=== PATIENT | female | born 1985 | race Caucasian/White ===

== ENCOUNTER 2016-10-22 04:00 | Inpatient (IN) | payer OTHER ==
--- NOTE | ~2016-10-22 | PN ---
Unit #: [id number] #: [id number] Patient: KATERYNA TO [id number] [facility] [address] [place] [address] [id number] MR#: [id number] NAME: KATERYNA TO ROOM: P211 Age: 31 Sex: F Admission Date: 10/22/2016 : 1985 Attending Physician: Sean Amaya M.D. Admitting Physician: Sean Amaya M.D. Primary Care Physician: Primary Care Physician No [facility] PROGRESS NOTES DATE 10/24/2016 DISCUSSION Ms. Kateryna To is a 31-year-old female currently here for detox and depression. Reports making progress but still feeling sad, depressed. Patient reported that she did not do well with Celexa and trazodone and was okay to try Lexapro and Seroquel. Patient sad, depressed, withdrawn, isolative. Still reporting having symptoms of withdrawal. Sleeping good. Tolerating medication fairly well. Complete review of system unremarkable. MENTAL STATUS EXAMINATION General appearance, patient dressed casually in hospital attire. Attention span, concentration fair. Oriented in time, place and person. Mood and affect sad, depressed. Speech monotone. Thought process concrete. Patient denied any thoughts of harming self or others or any psychotic symptoms, was seclusive, isolative. Recent and remote memory poor. Insight and judgement poor. DIAGNOSES 1. Mood disorder NOS. 2. Opiate use disorder, severe. ASSESSMENT/PLAN Advised to discontinue Celexa and trazodone and start patient on Lexapro 10 mg at bedtime and Seroquel 100 mg at bedtime. Continue with the detox protocol. If needed consider further adjustment of medication. Dictated by... Lainey Sanderson/jd TD: 10/24/2016 21:14 JOB #: [id number] Unit #: [id number] #: [id number] Patient: KATERYNA TO [facility] PROGRESS NOTES Page 1 of 1 X Sean Amaya MD X PROGRESS NOTE
--- NOTE | ~2016-10-22 | DS ---
Unit #: [id number] #: [id number] Patient: CARMEN TO [id number] [facility] [address] [place] [address] [id number] MR#: [id number] NAME: CARMEN TO. ROOM: P211 Age: 31 Sex: F Admission Date: 10/22/2016 : 1985 Discharge Date: 10/25/2016 Attending Physician: Sean Amaya M.D. Primary Care Physician: Primary Care Physician No DISCHARGE SUMMARY REASON FOR ADMISSION Opioid detox. DIAGNOSTIC STUDIES LABORATORY RESULTS: Urine drug screen positive for amphetamine. HOSPITAL COURSE The patient was admitted to inpatient unit on 10/22/2016 and discharged on 10/25/2016. The patient was treated with group therapy, individual therapy, medication management, detox protocol, and detox monitoring. The patient was responsive to treatment. Subsequently, the patient was discharged with a plan to follow up in outpatient program. DISCHARGE MEDICATIONS None. DISCHARGE DIAGNOSES Psychiatric: Opioid use disorder, severe, F11.20; major depressive disorder, recurrent, severe, F33.2. Secondary diagnosis: Deferred. Medical diagnosis: None. Stressors: Psychosocial stressors. DISCHARGE INSTRUCTIONS The patient to follow up in outpatient clinic as per secondary social studies teacher. CONDITION ON DISCHARGE The patient was pleasant and cooperative. Denied any psychotic symptom or any suicidal ideation. PROGNOSIS Guarded. DIET AND ACTIVITY As tolerated. Dictated by... Sean Amaya M.D. Unit #: [id number] #: [id number] Patient: CARMEN TO SZC/modl TD: 11/10/2016 11:52 JOB #: [id number] DISCHARGE SUMMARY Page 1 of 1 X Sean Amaya MD X DISCHARGE SUMMARY
--- NOTE | ~2016-10-22 | HP ---
Unit #: [id number] #: [id number] Patient: KATERYNA TO [id number] [place] [address] [id number] I MR#: [id number] NAME: KATERYNA TO. ROOM: P211 Age: 31 Sex: F Admission Date: 10/22/2016 : 1985 Attending Physician: Sean Amaya M.D. Admitting Physician: Sean Amaya M.D. Primary Care Physician: Primary Care Physician No HISTORY AND PHYSICAL HISTORY OF PRESENT ILLNESS Kateryna is a 31 year old admitted to [address] [place] [address] because of her drug use. She shoots heroin. PAST MEDICAL HISTORY Long history of opioid abuse to include IV heroin. PAST SURGICAL HISTORY None reported. ALLERGIES Penicillin (anaphylaxis). SOCIAL HISTORY Smokes less than 1 pack per day. Drinks half pint of liquor on a daily basis. Admits to a long history of opioid abuse to include IV heroin. FAMILY HISTORY Medically noncontributory. REVIEW OF SYSTEMS CONSTITUTIONAL: No fever or chills. HEENT: Denies any sore throat, ear pain or runny nose. CARDIOVASCULAR: Denies chest pain, irregular heart rhythm or palpitations. CHEST: Denies shortness of breath or cough. No hemoptysis. GASTROINTESTINAL: Denies nausea, vomiting, diarrhea or chronic constipation. ENDOCRINE: Denies history of increased thirst or urination. No recent significant weight loss or gain. GENITOURINARY: Denies dysuria, frequency, or hematuria. SKIN: Denies any rashes. HEMATOLOGIC: Denies history of increased bleeding or bruising. MUSCULOSKELETAL: Denies any hot, swollen joints. No generalized muscle pain. NEUROLOGIC: Denies problems with vision or speech. No frequent, severe headaches. No numbness, tingling or weakness in any extremities. Denies loss of bladder or bowel control. CURRENT MEDICATIONS Detox protocol. PHYSICAL EXAMINATION GENERAL: Alert, thin, in no apparent distress. Unit #: [id number] #: [id number] Patient: KATERYNA TO VITAL SIGNS: Blood pressure 126/82, heart rate 92, respirations 16, temperature 98.6. WEIGHT: 125. HEIGHT: 5 feet 7 inches. SKIN: Warm and dry without rash or lesion. HEENT: Normocephalic. TMs not viewed. Oral and nasal passages clear. Conjunctivae clear. PERRLA. EOMs intact. NECK: Supple without lymphadenopathy or thyromegaly. HEART: Regular rate and rhythm without murmur. LUNGS: Clear. ABDOMEN: Soft, nontender. : Not done. EXTREMITIES: No evidence of cyanosis, clubbing or edema. Moves all without focal deficit. NEUROLOGICAL: Grossly within normal limits. Cranial Nerves: II: Visual ruvalcaba are intact. III, IV AND : Extraocular movements are intact. Pupils are equal, round and reactive to light. V: Facial sensation is grossly normal. VII: Facial movements and expression are normal. VIII: Auditory acuity grossly intact. IX, X: Uvula is midline. Phonation is normal. XI: Patient shrugs shoulders and turns head normally. XII: Tongue protrudes in the midline. Sensory and Motor Function: Sensory and motor sensation is grossly normal. Motor: moves all extremities well. Coordination: Gait is normal. Deep Tendon Reflexes: Intact. IMPRESSION Psychiatric admission. RECOMMENDATIONS PSYCHIATRIC: Per psychiatrist. MEDICAL: See no contraindication to participate in facility's activities. MEDICAL PROGNOSIS Good. MEDICAL CONDITION Stable. Dictated by... Irma Gamez P.A.-C. for Lainey [place]/jd TD: 10/22/2016 19:41 JOB #: [id number] Unit #: [id number] #: [id number] Patient: KATERYNA TO HISTORY AND PHYSICAL Page 1 of 1 X Irma Gamez HISTORY AND PHYSICAL
--- NOTE | ~2016-10-22 | PA ---
Unit #: [id number] #: [id number] Patient: KATERYNA TO [id number] [facility] [address] [place] [address] [id number] I MR#: [id number] NAME: KATERYNA TO ROOM: P211 Age: 31 Sex: F Admission Date: 10/22/2016 : 1985 Date of Assessment: 10/23/2016 Attending Physician: Sean Amaya M.D. Admitting Physician: Sean Amaya M.D. Primary Care Physician: Primary Care Physician No PSYCHIATRIC ASSESSMENT INFORMANTS The patient reliability, fair informant and chart reliability, good. CHIEF COMPLAINT Opioid detox. HISTORY OF PRESENT ILLNESS Ms. Kateryna To is a 31-year-old female, presented with the above-mentioned complaint. The patient has a history of previous outpatient services. Currently, reporting using 1 to 1-1/2 g of heroin IV. The patient reported last use of 1 g of heroin. Feeling sick. The patient reports having extensive chemical dependency history. The patient reports that she is tired and needing some help to get her children back. The patient reported that she has been previously diagnosed with PTSD, depression, social anxiety, and panic disorder. The patient reports that she has not been taking her medication for the last 4 years. The patient scored 20 on COWS Scale. Denied any suicidal or homicidal ideation, but sad and depressed. The patient reported use of tobacco, age of onset 11; alcohol, age of onset 12; marijuana, age of onset 13; crack cocaine, age of onset 14; LSD, age of onset 12; opioid, age of onset 15; amphetamine, age of onset 28; and benzodiazepine, age of onset 15. The patient reported history of blackout, history of withdrawal symptom, and IV drug abuse. No history of HIV or hepatitis. The patient reported current symptoms of abdominal cramping, muscle cramping, diaphoresis, depressed mood, headache, irritability, poor appetite, restlessness, rhinorrhea, and sleep problem. Needing inpatient admission at this time. PAST PSYCHIATRIC HISTORY Remarkable for history of outpatient treatment as mentioned above. No history of any suicide attempt or any inpatient treatment. FAMILY HISTORY AND SOCIAL HISTORY The patient has a poor support system. No known history of any abuse. No legal charges. MEDICAL HISTORY Unremarkable for any chronic medical illness. Musculoskeletal; muscle strength and tone, no atrophy or abnormal movement. Gait normal. MEDICATION HISTORY None. ALLERGIES Unit #: [id number] #: [id number] Patient: KATERYNA TO No known drug allergies. SUBSTANCE ABUSE HISTORY Please see above. REVIEW OF SYSTEMS HEENT: Eyes, clear. Ears, nose, mouth, and throat; clear. CARDIOVASCULAR: Unremarkable. RESPIRATORY: Unremarkable. GI: Unremarkable. : Unremarkable. SKIN: Unremarkable. LYMPH NODE: Unremarkable. NEUROLOGIC: Unremarkable. ENDOCRINE: Unremarkable. HEMATOLOGIC: Unremarkable. ALLERGIC/IMMUNOLOGIC: Unremarkable. MUSCULOSKELETAL: Muscle strength and tone, no atrophy or abnormal movement. Gait normal. MENTAL STATUS EXAMINATION CONSTITUTIONAL: Measurement of vital signs; temperature 98.7, heart rate 92, respiratory rate 16, oxygen saturation 98%, and blood pressure 126/82. Height 5 feet 7 inches and weight 125 pounds. GENERAL APPEARANCE: The patient dressed casually. The patient did not show any facial deformity. MUSCULOSKELETAL: Please see above. PSYCHIATRIC EXAMINATION Description of speech, regular rate and normal volume. Description of thought process, goal directed. Description of association, intact. Description of abnormal psychotic thinking; the patient denied any hallucinations or delusions, but sad and depressed. Denied any suicidal or homicidal ideation. Substance abuse. Description of the patient's judgment: Concerning everyday activity, poor. Social situation, poor. Concerning psychiatric condition, poor. Complete mental examination; oriented in time, place, and person. Recent and remote memory, fair. Attention span and concentration, fair. Language, able to name object and repeat phrases. Fund of knowledge, aware of current event and passive vocabulary intact. Mood and affect, sad and dysphoric. Insight and judgment, fair to poor. ASSETS AND LIABILITIES Assets, the patient is articulate and able to take care of her ADL. Liability, history of substance abuse and depression. ADMITTING DIAGNOSES Psychiatric: Opioid use disorder, severe, F11.20 and major depressive disorder, recurrent, severe, F33.2. Secondary diagnosis: Deferred. Medical diagnosis: None. Stressors: Psychosocial stressors. PSYCHIATRIC PLAN AND TREATMENT GOAL AND DISCHARGE PLAN Unit #: [id number] #: [id number] Patient: KATERYNA TO 1. Advised to admit the patient on the inpatient unit. Provide safe, supportive, and structured environment. 2. Ordered labs; CBC, CMP, UA, and UDS. 3. Detox protocol and detox monitoring. 4. If needed, consider medication for depression. 5. The patient to attend all the programing, group therapy, individual therapy, and chemical dependency group. TREATMENT GOAL To attain euthymic mood, gain insight into her problem, and learn coping skills. DISCHARGE PLAN Plan to stabilize the patient and consider followup in outpatient program. ESTIMATED LENGTH OF STAY 5 days. Dictated by... Sean Amaya M.D. RICH/prieto TD: 10/23/2016 19:05 JOB #: [id number] PSYCHIATRIC ASSESSMENT Page 1 of 1 X Sean Amaya MD X PSYCHIATRIC ASSESSMENT
--- NOTE | ~2016-10-22 | PN ---
Unit #: [id number] #: [id number] Patient: KATEYRNA SIDHU [id number] [facility] [address] [place] [address] [id number] MR#: [id number] NAME: KATERYNA SIDHU ROOM: P211 Age: 31 Sex: F Admission Date: 10/22/2016 : 1985 Attending Physician: Sean Amaya M.D. Admitting Physician: Sean Amaya M.D. Primary Care Physician: Primary Care Physician Summer RODNEY PROGRESS NOTES DATE 10/22/2016 DISCUSSION Ms. Kateryna Sidhu is a 31-year-old female seen on 10/23/2016. The patient interviewed, chart reviewed. Obtained information from nursing staff. The patient was compliant and cooperative. Mood sad, depressed, withdrawn, flat affect. The patient still feeling anxious, nervous. Complete review of systems unremarkable. MENTAL STATUS EXAMINATION General appearance, the patient dressed casually. Attention span and concentration fair. Oriented to place and person. Mood and affect labile. Speech monotone. Thought process concrete. The patient denied any thoughts of harming self or others but sad, depressed, seclusive isolative. Recent and remote memory poor. Insight and judgement poor. DIAGNOSES Opioid use disorder severe, mood disorder NOS. ASSESSMENT/PLAN Advise to continue with current detox protocol with a plan to add Celexa 20 mg at bedtime. If needed consider further adjustment of medication. Dictated by... Lainey Sanderson/eleuterio TD: 10/23/2016 22:05 JOB #: [id number] Unit #: [id number] #: [id number] Patient: KATERYNA SIDHU [facility] PROGRESS NOTES Page 1 of 1 X Sean Amaya MD X PROGRESS NOTE
[2016-10-23 09:46] LABS: BASOPHIL% 0.7 % (0-2.5); EOSINOPHIL# 0.3 X10e3 (0-0.7); EOSINOPHIL% 4.2 % (0.0-7.0); HEMATOCRIT 44.3 % (35.0-45.0); LYMPHOCYTE# 3.1 X10e3 (1.0-3.5); LYMPHOCYTE% 45.5 % (17.0-45.0); MEAN CELL VOLUME 88.5 FL (83-96); MEAN CORPUSCULAR HEMOGLOBIN 28.1 PG (28-34); MEAN CORPUSCULAR HGB CONC 31.7 g/dL (30-36); MEAN PLATELET VOLUME 8.7 FL (6.5-11.5); MONOCYTE# 0.5 X10e3 (0-1.0); MONOCYTE% 7.5 % (3.0-12.0); NEUTROPHIL# 2.8 X10e3 (1.5-7.1); NEUTROPHIL% 42.1 % (40-75); PLATELET COUNT 315 X10e3 (140-420); RED BLOOD COUNT 5.01 X10e (3.90-5.30); RED CELL DISTRIBUTION WIDTH 13.9 % (11.0-15.5); WHITE BLOOD COUNT 6.7 X10e3 (4.0-10.5)
[2016-10-23 09:47] LABS: DIFF IND NO
[2016-10-23 10:06] LABS: ALBUMIN SERUM 3.5 g/dL (3.5-5.0); BILIRUBIN,TOTAL 0.2 mg/dL (0.2-2.0); CALCIUM SERUM 9.2 mg/dL (8.4-10.2); CREATININE SERUM 0.8 mg/dL (0.6-1.4); GLOM FILT RATE Estimated 97.6 mL/min (>60); POTASSIUM 4.3 mmol/L (3.5-5.1)
[2016-10-24 09:46] LABS: URINE APPEARANCE CLEAR; URINE BILIRUBIN NEG (NEG); URINE BLOOD NEG (NEG); URINE COLOR YELLOW; URINE GLUCOSE NEG (NEG); URINE KETONE NEG (NEG); URINE LEUKOCYTE ESTERASE 2+ (NEG); URINE NITRATE POS (NEG); URINE PH 6.5 (5-8); URINE PROTEIN NEG (NEG); URINE SPECIFIC GRAVITY 1.019 (1.003-1.035); URINE UROBILINOGEN 0.2 MG/DL (NEG)
[2016-10-24 09:49] LABS: URBCS1 AUWI 0-2 /[HPF] (0-2); URINE BACTERIA AUWI 4+ (NEGATIVE); URINE SQUAMOUS EPITHELIAL CELL NONE SEEN /[HPF]; UWBCS1 AUWI 25-50 (0-5)
[2016-10-24 10:24] LABS: AMPHETAMINE POS (NEG); BARBITURATES NEG (NEG); BENZODIAZEPINES NEG (NEG); COCAINE NEG (NEG); MARIJUANA NEG (NEG); OPIATES NEG (NEG); TRICYCLIC ANTIDEPRESSANTS NEG (NEG); U METHADONE NEG (NEG)
[2016-10-26 18:01] LABS: HA AB IGM (HEPPAN) Nonreactive (()); HB CORE AB IGM (HEPPAN) Nonreactive (Nonreactive); HB S AG (HEPPAN) Nonreactive (Nonreactive); HEP C AB (HEPPAN) Reactive (Nonreactive)
== END 2016-10-25 10:18 | disposition home or self-care (01) | DRG 897 ==
LOC: P2S 11:21
PROVIDERS: Psychiatry & Neurology Psychiatry
PROC: HZ2ZZZZ Detoxification Services for Substance Abuse Treatment (ICD-10-PCS; principal; 2016-10-22)
DX: F11.20 Opioid dependence, uncomplicated (principal); F33.2 Major depressive disorder, recurrent severe without psychotic features; F39 Unspecified mood [affective] disorder; Z88.0 Allergy status to penicillin
CPT/HCPCS: 80053; 80074; 80307; 81003; 84703; 85025; 86592